=== PATIENT | female | born 1985 | race Caucasian/White ===

== ENCOUNTER 2019-07-10 05:48 | Inpatient (IN) ==
[2019-07-10] MEDS: LACTATED RINGERS 1,000 ML IV SCH ×3 (06:14→18:22)
[2019-07-10] MEDS ORDERED: CITRIC ACID/SODIUM CITRATE 30 ML UDCUP PO ONE (06:22)
[2019-07-10] MEDS ORDERED: ceFAZolin 2,000 MG in PREMIX 1 EACH IV ONE (06:22)
[2019-07-10 06:39] LABS: Basophils % 0.5 % (0.0-0.8); Eosinophils # 0.1 10*3/uL (0.0-0.87); Eosinophils % 1.3 % (0.00-10.9); Hematocrit 34.8 VOL% (35.7-47.0); Hemoglobin 11.7 GM/DL (12.0-16.0); Immature Granulocytes % 0.5 %; Immature Granulocytes Absolute 0.03 #; Lymphocytes # 1.5 10*3/uL (1.4-4.0); Lymphocytes % 23.3 % (21.3-54.2); Mean Corpuscular HGB Conc 33.6 GM/DL (32-36); Mean Corpuscular Volume 94.6 FL (87-102); Mean Platelet Volume 12.9 FL (9.6-12.0); Monocytes % 8.2 % (1.7-12.7); Neutrophils % 66.2 % (38.7-73.9); Red Blood Count 3.68 MC/CUMM (3.8-5.5); Red Cell Distribution Width 13.4 % (9.3-17.3); White Blood Count 6.4 T/CUMM (4-12)
[2019-07-10 06:41] LABS: Platelet Count 93 T/CUMM (130-400)
[2019-07-10] MEDS ORDERED: FAMOTIDINE 20 MG/2 ML VIAL IV ONE (06:48)
[2019-07-10 07:12] LABS: Anisocytosis Slight; Platelet Estimate Decreased
[2019-07-10] MEDS ORDERED: OXYTOCIN/LR 20 UNIT/1,000 ML BAG IV ONE ×2 (07:41→10:23)
[2019-07-10] MEDS ORDERED: DEXAMETHASONE 4 MG/1 ML VIAL ONE (09:58)
[2019-07-10] MEDS ORDERED: ROPIVACAINE 0.5% 30 ML VIAL ONE (10:01)
[2019-07-10] MEDS ORDERED: BUPIVACAINE MPF 0.5% /EPI 30 ML VIAL ONE (10:11)
[2019-07-10] MEDS ORDERED: LANOLIN 50% CREAM 0.3 OZ TUBE TOP PRN (10:23)
[2019-07-10] MEDS ORDERED: HYDROCORTISONE 2.5% RECTAL CREAM 30 GM TUBE TOP PRN (10:23)
[2019-07-10] MEDS ORDERED: ONDANSETRON 4 MG/2 ML VIAL IV PRN (10:23)
[2019-07-10] MEDS ORDERED: oxyCODONE/ACETAMINOPHEN 5-325 MG TABLET PO PRN ×2 (10:23)
[2019-07-10] MEDS ORDERED: MEASLES/MUMPS/RUBELLA VACCINE 0.5 ML VIAL SUBCUT ONE (10:23)
[2019-07-10] MEDS ORDERED: DIPH/TET/ACEL PERT BOOSTER VACCINE 0.5 ML VIAL IM ONE (10:23)
[2019-07-10] MEDS ORDERED: BISACODYL 10 MG SUPP RECTAL PRN (10:23)
[2019-07-10] MEDS ORDERED: WITCH HAZEL PADS 100/JAR TOP PRN (10:23)
[2019-07-10] MEDS ORDERED: ACETAMINOPHEN 325 MG TABLET PO PRN (10:23)
[2019-07-10] MEDS ORDERED: RHO(D) IMMUNE GLOBULIN 300 MCG SYRINGE IM ONE (10:23)
[2019-07-10] MEDS ORDERED: BENZOCAINE 20%/MENTHOL 0.5% SPRAY 56 GM CAN TOP PRN (10:23)
[2019-07-10] MEDS ORDERED: ONDANSETRON 4 MG/2 ML VIAL ONE (10:56)
[2019-07-10] MEDS ORDERED: MORPHINE 10 MG/10 ML VIAL ONE (10:56)
[2019-07-10] MEDS ORDERED: BUPIVACAINE SPINAL 0.75% 2 ML AMP SPINAL ONE (10:56)
[2019-07-10] MEDS ORDERED: PHENYLEPHRINE 1 MG/10 ML SYRINGE IV ONE (10:56)
[2019-07-10] MEDS ORDERED: propofoL 200 MG/20 ML VIAL IV ONE (10:56)
[2019-07-10 11:04] LABS: Apearance,Urine CLEAR (Clear); Bacteria,Urine Occasional /HPF (Few); Bilirubin,Urine Negative (Negative); Blood, Urine Negative (Negative); Glucose,Urine (UA) Negative (Negative); Ketones,Urine Negative (Negative); Nitrite,Urine Negative (Negative); Protein,Urine Negative; RBC,Urine <1 /HPF (0-4); Urine Color Straw (Yellow); Urine Urobilinogen < 2.0 EU/DL (0.2-1.0); WBC,Urine <1 /HPF (0-6)
[2019-07-10] MEDS: ceFAZolin 1,000 MG in SYRINGE 1 EACH IV SCH (17:12)
[2019-07-11] MEDS: ceFAZolin 1,000 MG in SYRINGE 1 EACH IV SCH
[2019-07-11 05:59] LABS: Basophils % 0.1 % (0.0-0.8); Immature Granulocytes % 0.4 %; Immature Granulocytes Absolute 0.04 #; Lymphocytes # 1.3 10*3/uL (1.4-4.0); Lymphocytes % 11.8 % (21.3-54.2); Mean Corpuscular HGB Conc 33.3 GM/DL (32-36); Mean Corpuscular Volume 94.9 FL (87-102); Neutrophils % 81.7 % (38.7-73.9); Platelet Count 79 T/CUMM (130-400); Red Blood Count 3.16 MC/CUMM (3.8-5.5); Red Cell Distribution Width 13.4 % (9.3-17.3)
[2019-07-11 06:22] LABS: Hypochromasia 1+; Lymphocytes 14 % (20-55); Platelet Estimate Decreased; Segmented Neutrophils 81 % (50-85); Total Cells Counted 100
[2019-07-11] MEDS: IBUPROFEN 800 MG TABLET PO PRN ×2 (08:23→19:24)
[2019-07-11] MEDS: DOCUSATE SODIUM 100 MG CAPSULE PO SCH ×3 (10:33→20:28)
[2019-07-11] MEDS ORDERED: MAGNESIUM HYDROXIDE SUSP 30 ML UDCUP PO PRN (20:18)
[2019-07-12] MEDS: IBUPROFEN 800 MG TABLET PO PRN (05:38)
[2019-07-12 07:35] VITALS: BP 108/67
[2019-07-12] MEDS: DOCUSATE SODIUM 100 MG CAPSULE PO SCH (09:53)
== END 2019-07-12 12:30 | disposition home or self-care (01) | DRG 788 ==
LOC: N.LD 05:48 → N.OB 14:17
PROVIDERS: ADMIT Specialist; ATTEND Specialist
PROC: LDCSECT (ICD-10-PCS; 2019-07-10 11:30)